=== PATIENT | male | born 1950 | race Caucasian/White ===

== ENCOUNTER 2021-05-02 08:00 | Outpatient (CLI) | payer MEDICARE ==
--- NOTE | 2021-05-02 13:41 | XRAY Report ---
PROCEDURE: Foot 3 View RT INDICATIONS: RIGHT FOOT PAIN TECHNIQUE: 3 views of the foot were acquired. COMPARISON: None FINDINGS: Bones: No fractures or dislocations. No suspicious bony lesions. Mild periarticular osteophyte for mation at the first metatarsophalangeal joint, as well as the interphalangeal joints of the digits. Soft tissues: No tibiotalar joint effusion. Achilles tendon appears normal. IMPRESSION: Osteoarthritis. No acute fracture. No osseous lesion. If symptoms and/or clinical suspicion for patho logy continue, further assessment with repeat plain films, or advanced imaging (e.g., CT, MRI, or bon e scan) is recommended for further assessment. Reviewed by: Tashia Crocker MD on 05/02/2021 1:40 PM PDT Approved by: Tashia Crocker MD on 05/02/2021 1:40 PM PDT Station ID: [id number]
== END 2021-05-02 23:59 | disposition home or self-care (01) ==
LOC: DI.S 08:00
PROVIDERS: ATTEND Emergency Medicine
DX: M19.071 Primary osteoarthritis, right ankle and foot (principal)

== ENCOUNTER 2023-12-06 11:38 | Emergency (ER) | payer MEDICARE ==
[2023-12-06 12:19] LABS: BILIRUBIN,URINE NEGATIVE (NEGATIVE); CLARITY,URINE CLEAR (CLEAR); GLUCOSE, URINE (UA) NEGATIVE (NEGATIVE); KETONES,URINE (UA) NEGATIVE (NEGATIVE); LEUKOCYTE ESTERASE, URINE NEGATIVE (NEGATIVE); NITRITE,URINE NEGATIVE (NEGATIVE); OCCULT BLOOD,URINE NEGATIVE (NEGATIVE); PROTEIN,URINE NEGATIVE (NEGATIVE); UROBILINOGEN,URINE 0.2 (NORMAL) E.U./dL (NORMAL)
[2023-12-06 12:31] LABS: BASOPHILS # (AUTO) 0.1 10^3/uL (0.0-0.1); EOSINOPHILS # (AUTO) 0.1 10^3/uL (0.0-0.7); HCT - HEMATOCRIT 48.3 % (42.0-52.0); LYMPHOCYTES # (AUTO) 1.5 10^3/uL (1.5-3.5); LYMPHOCYTES % (AUTO) 30.8 %; MEAN CORPUSCULAR HEMOGLOBIN 29.7 pg (27.0-31.0); MEAN CORPUSCULAR HGB CONC 33.1 g/dL (32.0-36.0); MEAN CORPUSCULAR VOLUME 89.8 fL (80.0-94.0); MEAN PLATELET VOLUME 9.9 fL (7.4-11.4); MONOCYTES # (AUTO) 0.4 10^3/uL (0.0-1.0); MONOCYTES % (AUTO) 8.8 %; NEUTROPHILS # (AUTO) 2.8 10^3/uL (1.5-6.6); PLT - PLATELET COUNT 258 10^3/uL (130-450); RED BLOOD COUNT 5.38 10^6/uL (4.70-6.10); RED CELL DISTRIBUTION WIDTH 12.6 % (12.0-15.0); WHITE BLOOD COUNT 4.9 x10^3/uL (4.8-10.8)
[2023-12-06 12:43] LABS: ALBUMIN 4.5 g/dL (3.2-5.5); ALBUMIN/GLOBULIN RATIO 1.6 (1.0-2.2); BILIRUBIN,TOTAL 1.3 mg/dL (0.2-1.0); CALCIUM 9.2 mg/dL (8.5-10.3); CREATININE 0.9 mg/dL (0.6-1.3); POTASSIUM 3.9 mmol/L (3.5-4.5); TOTAL PROTEIN 7.3 g/dL (6.4-8.9)
--- NOTE | 2023-12-06 15:17 | ED Physician Documentation ---
PD HPI ABD PAIN - Stated complaint Stated Complaint: SIDE PX - Chief complaint Chief Complaint: Abd Pain - History obtained from History obtained from: Patient, Family - Additional information Additional information: 73-year-old gentleman who is very healthy but has not seen a doctor in probably decades. He had his appendix out a year and a half ago, it was ruptured. About a month and a half ago he developed some right-sided abdominal pain. He thought it might be related to drinking beer, he was drinking about 4 drinks a night. He stopped drinking the beer and the pain went away but he has this persistent sensation in the right abdomen. It is not painful but it just bothers him. It is worse if he bends over. No other exacerbating or ameliorating factors. No weight loss. No change in bowel movements. No nausea. Never had a colonoscopy. PD PAST MEDICAL HISTORY - Past Medical History Past Medical History: No - Past Surgical History Past Surgical History: Yes General: Appendectomy - Present Medications Home Medications: Ambulatory Orders Medication Instructions Recorded Confirmed No Known Home Medications 12/06/23 12/06/23 - Allergies Allergies/Adverse Reactions: Allergies Allergy/AdvReac Type Severity Reaction Status Date / Time Penicillins Allergy Hives Verified 12/06/23 11:59 - Social History Does the pt smoke?: No Smoking Status: Never smoker PD ED PE NORMAL - Vitals Vital signs reviewed: Yes - General General: Alert and oriented X 3, No acute distress - Respiratory Respiratory: No respiratory distress - Abdomen Abdomen: Normal bowel sounds, Soft, Non tender - Neuro Neuro: Alert and oriented X 3, Normal speech Results - Vitals Vitals: Vital Signs - 24 hr 12/06/23 12/06/23 12/06/23 11:57 15:27 17:00 Temperature 36.5 C Heart Rate 72 68 69 Respiratory 18 20 20 Rate Blood Pressure 159/85 H 146/77 H 143/77 H O2 Saturation 97 99 95 Oxygen O2 Source Room air - Labs Labs: Laboratory Tests 12/06/23 12/06/23 12/06/23 12:12 12:21 12:21 WBC 4.9 RBC 5.38 Hgb 16.0 Hct 48.3 MCV 89.8 MCH 29.7 MCHC 33.1 RDW 12.6 Plt Count 258 MPV 9.9 Neut # (Auto) 2.8 Lymph # (Auto) 1.5 [place] # (Auto) 0.4 Eos # (Auto) 0.1 Baso # (Auto) 0.1 Absolute Nucleated RBC 0.00 Nucleated RBC % 0.0 Sodium 139 Potassium 3.9 Chloride 106 Carbon Dioxide 25 Anion Gap 8.0 BUN 13 Creatinine 0.9 Estimated GFR (MDRD) 83 L Glucose 104 Calcium 9.2 Total Bilirubin 1.3 H AST 19 ALT 20 Alkaline Phosphatase 53 Total Protein 7.3 Albumin 4.5 Globulin 2.8 Albumin/Globulin Ratio 1.6 Lipase 31 Urine Color LT. YELLOW Urine Clarity CLEAR Urine pH 6.0 Ur Specific [place] 1.010 Urine Protein NEGATIVE Urine Glucose (UA) NEGATIVE Urine Ketones NEGATIVE Urine Occult Blood NEGATIVE Urine Nitrite NEGATIVE Urine Bilirubin NEGATIVE Urine Urobilinogen 0.2 (NORMAL) Ur Leukocyte Esterase NEGATIVE Ur Microscopic Review NOT INDICATED Urine Culture Comments NOT INDICATED - Rads (name of study) CT A/P Relevant Findings:: Final report received, EMP independent interpretation of test PD Medical Decision Making - ED course ED course: He presents with right abdominal discomfort this been going on for a month and a half or so. It is worse when he bends over. Labs are unremarkable including CBC, CMP, urinalysis. CT read as normal with the exception of some spinal disease. On my view he does have an extensive stool load and also an abnormally large prostate. These findings were discussed with the patient and daughter at the bedside and follow-up advised. He has a new PCP that he will be seeing later this week. Departure - Departure Disposition: 01 Home, Self Care Clinical Impression: Abdominal pain Qualifiers: Abdominal location: right lower quadrant Qualified Code(s): R10.31 - Right lower quadrant pain Condition: Good Record reviewed to determine appropriate education?: Yes Instructions: ED Abdominal Pain Unkn Cause Male Follow-Up: Sia Smith PA [Credentialed Staff Provider] - Fede Vergara MD [Provider Admit Priv/Credential] - Comments: Workup today was generally normal/unremarkable with normal labs, CBC, CMP, and urinalysis. The official read on your CAT scan was normal with the exception of some spinal disease, but on my read of your CAT scan I think you have a large stool load especially on the right and I think a dose or 2 of MiraLAX which is available [id number] might help with your pain. He also had a fairly enlarged prostate which deserves further workup with a urologist. Forms: PCP List Discharge Date/Time: 12/06/23 17:14
[2023-12-06] MEDS: iohexoL-300 100 ML VIAL IVP ONE (16:47)
--- NOTE | 2023-12-06 16:52 | CT Report ---
PROCEDURE: Abdomen/Pelvis W INDICATIONS: R abd pain, IV only CONTRAST: 100ml omni 300 TECHNIQUE: After the administration of intravenous contrast, a CT scan of the abdomen and pelvis was performed. Images were recorded and evaluated at appropriate window settings. Reformats: coronal and sagittal. F or radiation dose reduction, the following was used: automated exposure control, adjustment of mA and /or kV according to patient size. COMPARISON: None. FINDINGS: Image quality: Excellent. Lung bases and heart: Unremarkable. Liver: No solid mass. Gallbladder and biliary tree: Gallbladder is grossly unremarkable. No biliary ductal dilatation is pr esent. Spleen: No splenomegaly. Pancreas: No pancreatic ductal dilation. Adrenals: No adrenal nodule. Kidneys and ureters: No hydronephrosis. No renal cystic lesion which requires follow up. No solid mas s. Bowel and peritoneum: Small hiatal hernia. No bowel distension. No pathologic free fluid. Appendix is not seen. No evidence of appendicitis. Lymph nodes: No central or retroperitoneal adenopathy. Vessels: No infrarenal aortic aneurysm. PELVIS Reproductive organs: Unremarkable. Bladder: No abnormal wall thickening, accounting for underdistention. Pelvic lymph nodes: No pelvic adenopathy by size criteria. Bones: No aggressive osseous abnormality. There is mild grade 1 anterolisthesis of L5 on S1. Bilatera l L5-S1 pars intraarticularis defects are present. Other: No significant ventral or inguinal hernia. IMPRESSION: 1. No acute process. 2. Appendix not seen. No evidence of appendicitis. Reviewed by: Tashia Daily MD on 12/06/2023 4:50 PM [facility] Approved by: Tashia Daily MD on 12/06/2023 4:50 PM PST Station ID: [id number]
[2023-12-06 17:12] VITALS: BP 143/77; O2SAT 95
== END 2023-12-06 17:14 | disposition home or self-care (01) ==
LOC: ED 11:38
DX: R10.31 Right lower quadrant pain (principal)
CPT/HCPCS: 36415; 80053; 81001; 81003; 83690; 85025; 87086; 99283; 99284

== ENCOUNTER 2023-12-10 11:51 | Outpatient (CLI) | payer MEDICARE ==
[2023-12-10 15:04] LABS: THYROID STIMULATING HORMONE 6.78 uIU/mL (0.34-5.60)
[2023-12-10 15:48] LABS: ALBUMIN 4.6 g/dL (3.2-5.5); ALBUMIN/GLOBULIN RATIO 1.7 (1.0-2.2); ALKALINE PHOSPHATASE 53 IU/L (42-121); ALT ALANINE AMINOTRANSFERASE 21 IU/L (10-60); AST ASPARTATE AMINOTRANSFERASE 20 IU/L (10-42); BILIRUBIN,TOTAL 1.9 mg/dL (0.2-1.0); BUN - BLOOD UREA NITROGEN 15 mg/dL (6-20); CALCIUM 9.6 mg/dL (8.5-10.3); CARBON DIOXIDE - CO2 30 mmol/L (21-32); CHLORIDE 102 mmol/L (101-111); CHOL/HDL RATIO 3.2 (<5.0); CHOLESTEROL 191 mg/dL; CREATININE 0.9 mg/dL (0.6-1.3); GFR - MDRD 83 (>89); GLUCOSE 95 mg/dL (74-104); HDL CHOLESTEROL 60 mg/dL; LDL CHOLESTEROL,CALCULATED 115 mg/dL; LDL/HDL RATIO 1.9 (<3.6); POTASSIUM 4.4 mmol/L (3.5-4.5); SODIUM 140 mmol/L (135-145); TOTAL PROTEIN 7.3 g/dL (6.4-8.9); TRIGLYCERIDES 78 mg/dL (48-352); VLDL CHOLESTEROL 16 mg/dL
[2023-12-10 20:53] LABS: ESTIMATED AVERAGE GLUCOSE 114 mg/dL (70-100); HEMOGLOBIN A1c% 5.6 % (4.27-6.07)
== END 2023-12-10 11:52 | disposition home or self-care (01) ==
LOC: LAB.S 11:51
PROVIDERS: ATTEND Physician Assistant Medical
DX: R17 Unspecified jaundice (principal); R10.31 Right lower quadrant pain; N40.3 Nodular prostate with lower urinary tract symptoms; R39.12 Poor urinary stream
CPT/HCPCS: 36415; 80053; 80061; 83036; 83721; 84153; 84439; 84443

== ENCOUNTER 2023-12-22 13:12 | Outpatient (CLI) | payer MEDICARE ==
--- NOTE | 2023-12-22 15:30 | CT Report ---
PROCEDURE: Lung Cancer Screen INDICATIONS: EX SMOKER TECHNIQUE: A CT scan of the chest was performed. Intravenous contrast media was not administered. Images were re corded and evaluated at appropriate window settings. Reformats: axial MIP of the chest, coronal and s agittal. For radiation dose reduction, the following was used: automated exposure control, adjustment of mA and/or kV according to patient size. COMPARISON: None. FINDINGS: Image quality: Good, allowing for low radiation dose Lungs and pleura:Scattered scarring and atelectasis. No overtly suspicious pulmonary nodule on this b aseline lung cancer screening study. No nodule identified measuring over 6 mm. No pleural effusions o r dense airspace disease. Micronodules/granulomas are identified, none requiring dedicated follow-up sooner than one year Mediastinum, heart, and esophagus: Possible small hiatal hernia. There are annular calcifications of the heart. No pathologic lymph nodes by size criteria. Chest wall and thyroid: No actionable thyroid nodule identified. Chest wall is unremarkable Upper abdomen: No gross abnormality on these low-dose noncontrast images. Bones: Degenerative changes, no acute or suspicious osseous finding. IMPRESSION: Lung RADS 2: Continue annual screening. This is a baseline lung cancer low-dose CT. Reviewed by: Brent Mulligan MD on 12/22/2023 3:28 PM PST Approved by: Brent Mulligan MD on 12/22/2023 3:28 PM PST Station ID: [id number]
== END 2023-12-22 13:13 | disposition home or self-care (01) ==
LOC: DI 13:12
PROVIDERS: ATTEND Physician Assistant Medical
DX: Z12.2 Encounter for screening for malignant neoplasm of respiratory organs (principal); Z87.891 Personal history of nicotine dependence; J98.4 Other disorders of lung; J98.11 Atelectasis; R91.8 Other nonspecific abnormal finding of lung field

== ENCOUNTER 2024-02-18 08:10 | Day surgery (SDC) | payer MEDICARE ==
[2024-02-18] MEDS: LACTATED RINGERS 1,000 ML IV ONE ×2 (08:39→10:27)
[2024-02-18] MEDS ORDERED: PROPOFOL 500 MG/50 ML 500 MG/50 ML VIAL ONE (09:23)
--- NOTE | 2024-02-18 09:29 | ANESTHESIA ---
Pre-Anesthesia VS, & Labs - Diagnosis SCREENING - Procedure COLONOSCOPY Vital Signs: Temp Pulse Resp BP Pulse Ox O2 Flow Rate 36.8 C 88 17 143/79 H 96 02/18/24 08:28 02/18/24 08:28 02/18/24 08:28 02/18/24 08:28 02/18/24 08:28 Height: 5 ft 7 in Weight (kg): 67 kg Body Mass Index: 23.1 BMI Classification: Normal - NPO Last Fluid Intake: 0600 Home Medications and Allergies Home Medications: Ambulatory Orders Levothyroxine [Synthroid] 25 mcg PO QDAC 02/17/24 Tamsulosin [Flomax] 0.4 mg PO DAILY 02/17/24 Levothyroxine [Synthroid] 25 mcg PO QDAC 02/17/24 Tamsulosin [Flomax] 0.4 mg PO DAILY 02/17/24 Allergies/Adverse Reactions: Allergies Allergy/AdvReac Type Severity Reaction Status Date / Time Penicillins Allergy Hives Verified 12/06/23 11:59 Anes History & Medical History - Anesthetic History Anesthesia Complications: reports: No previous complications Family history of Anesthesia Complications: Denies - Medical History Cardiovascular: reports: None Pulmonary: reports: None Gastrointestinal: reports: Other Urinary: reports: Benign prostate hypertrophy Musculoskeletal: reports: None Endocrine/Autoimmune: reports: HyPOthyroidism Skin: reports: None Smoking Status: Never smoker Psychosocial: reports: No issues indicated, Alcohol (3-4/NIGHT) - Surgical History General: reports: Appendectomy Exam General: Alert Dental: WNL Mouth Openin Fingerbreadth Neck Mobility: Normal Mallampati classification: II Thyromental Distance: 4-6 cm Plan Anesthesia Type: Total IV Consent for Procedure(s) Verified and Reviewed: Yes Code Status: Attempt Resuscitation ASA classification: 2-Mild systemic disease Is this case an emergency?: No
[2024-02-18 10:51] VITALS: BP 125/70; O2SAT 96
--- NOTE | 2024-02-18 11:05 | ANESTHESIA POST OP EVALUATION ---
Anesthesia Post Eval - Post Anesthesia Eval Vitals: Last Vital Signs Temp 37.3 C 02/18/24 10:27 Pulse 79 02/18/24 10:44 Resp 15 02/18/24 10:44 BP 125/70 02/18/24 10:44 Pulse Ox 96 02/18/24 10:44 O2 Flow Rate CV Function Including HR & BP: Stable Pain Control: Satisfactory Nausea & Vomiting: Negative Mental Status: Baseline Respiratory Status: Airway Patent Hydration Status: Satisfactory Anesthesia Complications: None
== END 2024-02-18 08:11 | disposition home or self-care (01) ==
LOC: SDS 08:10
PROVIDERS: ATTEND Surgery
DX: Z12.11 Encounter for screening for malignant neoplasm of colon (principal); K57.30 Diverticulosis of large intestine without perforation or abscess without bleeding; Z87.891 Personal history of nicotine dependence; E03.9 Hypothyroidism, unspecified
CPT/HCPCS: G0121; J7120